=== PATIENT | female | born 1965 | race Caucasian/White ===

== ENCOUNTER 2019-02-22 09:18 | Outpatient (CLI) | END 2019-02-22 09:19 | disposition home or self-care (01) | LOC: RAD 09:18 | PROVIDERS: ATTEND Nurse Practitioner Family | DX: Z12.31 Encounter for screening mammogram for malignant neoplasm of breast (principal) ==

== ENCOUNTER 2019-06-21 14:16 | Emergency (ER) ==
[2019-06-21 14:30] VITALS: BP 163/98; TEMP 97.8; BMI 36.1
--- NOTE | 2019-06-21 15:18 | CT ---
Exam: CT of the brain without intravenous contrast. Comparison: None available. Reason for exam: Dizziness. FINDINGS: No acute intracranial hemorrhage, mass effect, ventricular dilatation, or territorial infa rction. The quadrigeminal and ambient cisterns appear patent. There is no extraaxial fluid collecti on. The calvarium appears intact without depressed skull fracture. No air-fluid levels are seen in the paranasal sinuses. Impression: No acute intracranial findings are seen in this exam.
--- NOTE | 2019-06-21 15:56 | DI ---
EXAM: Chest two views HISTORY: Chest pain COMPARISON: None TECHNIQUE: Two views of the chest were performed FINDINGS: The lungs are clear. There is no pleural effusion or pneumothorax. The heart is normal i n size. The mediastinal contour is normal. There are no acute abnormalities of the bones. IMPRESSION: No acute cardiopulmonary process.
--- NOTE | 2019-06-21 17:07 | ED.PDOC ---
General ED Provider: Dr. DUARTE HUERTA Chief Complaint: Headache Stated Complaint: HEADACHE, CHEST PAIN DIZZINES SUDDEN ONSET Time Seen by Physician: 14:30 (SEEN WITH KWAME AT D/C AND RECHECK EXAM ) Mode of Arrival: Wheelchair Information Source: Patient Exam Limitations: No limitations Primary Care Provider: AZRA MONTIEL Nursing and Triage Documentation Reviewed and Agree: Yes Does patient meet sepsis criteria?: Yes If yes, has appropriate treatment been initiated?: No System Inflammatory Response Syndrome: Not Applicable Sepsis Protocol: For patient's 13 years and over: Temp is 96.8 and below OR 101 and greater Pulse >90 BPM Resp >20/minute Acutely Altered Mental Status Are patient's symptoms suggestive of a new infection, such as: -Pneumonia -Skin, Soft Tissue -Endocarditis -UTI -Bone, Joint Infection -Implantable Device -Acute Abdominal Infection -Wound Infection -Meningitis -Blood Stream Catheter Infection -Unknown Neurological Complaint Exam - Dizziness Complaint/Exam Last Known Well: TODAY Onset: Sudden Duration: 30 MIN Symptoms Are: Resolved Timing: Intermittent Initial Severity: Mild Current Severity: None Character: Reports: Dizzy Aggravating: Reports: Exertion, Headache, Change in head position Alleviating: Reports: Rest Associated Signs and Symptoms: Denies: Nausea, Vomiting, Diaphoresis, Tinnitus, Chest pain, Short of air, Palpitations, Unsteady gait, GI blood loss, Visual changes, Decreased oral intake, Change in medication, Change in diet, OTC meds, Loss of balance Review of Systems - Review Of Systems Constitutional: Reports: Malaise Eyes: Reports: No symptoms Ears, Nose, Mouth, Throat: Reports: No symptoms Respiratory: Reports: No symptoms Cardiac: Reports: Chest pain GI: Reports: No symptoms : Reports: No symptoms Musculoskeletal: Reports: No symptoms Skin: Reports: No symptoms Neurological: Reports: Headache, Other (DIZZINESS) Endocrine: Reports: No symptoms Hematologic/Lymphatic: Reports: No symptoms All Other Systems: Reviewed and Negative Past Medical History - Past Medical History Previously Healthy: Yes Endocrine: Reports: Dyslipidemia Cardiovascular: Reports: Hypertension Respiratory: Reports: None Hematological: Reports: None Gastrointestinal: Reports: None Genitourinary: Reports: None Neuro/Psych: Reports: None Musculoskeletal: Reports: None Cancer: Reports: None Last Menstrual Period: n/a - Surgical History General Surgical History: Reports: None - Family History Family History: Reports: None - Social History Smoking Status: Current every day smoker Hx Substance Use: No Alcohol Screening: Occasionally Physical Exam - Physical Exam Appearance: Well-appearing, No pain distress, Well-nourished Eyes: KRISTIAN, EOMI, Conjunctiva clear ENT: Ears normal, Nose normal, Oropharynx normal Respiratory: Airway patent, Breath sounds clear, Breath sounds equal, Respirations nonlabored Cardiovascular: RRR, Pulses normal, No rub, No murmur GI/: Soft, Nontender, No masses, Bowel sounds normal, No Organomegaly Musculoskeletal: Normal strength, ROM intact, No edema, No calf tenderness Skin: Warm, Dry, Normal color Neurological: Sensation intact, Motor intact, Reflexes intact, Cranial nerves intact, Alert, Oriented Psychiatric: Affect appropriate, Mood appropriate - NIH Stroke Scale 1a. Level of Consciousness: 0=Alert and keenly responsive 1b. Level of Consciousness Questions: 0=Answers correctly to two questions 1c. Level of Consciousness Commands: 0=Performs two tasks correctly 2. Best Gaze: 0=Normal 3. Visual: 0=No visual loss 4. Facial Palsy: 0=Normal 5a. Motor Left Arm: 0=No drift,arm holds 90 degrees for 10 sec., leg 30 degrees for 5 sec. 5b. Motor Right Arm: 0=No drift,arm holds 90 degrees for 10 sec., leg 30 degrees for 5 sec. 6a. Motor Left Le=No drift,arm holds 90 degrees for 10 sec., leg 30 degrees for 5 sec. 7. Limb Ataxia: 0=Absent 8. Sensory: 0=Normal 9. Best Language: 0=No aphasia 10. Dysarthria: 0=Normal 11. Extincion and Inattention: 0=Normal Stroke Scale Total: 0 Interpretation - Radiology Interpretation Radiology Interpretation By: Radiologist - Neonatal Intensive Care Nurse Rate: Normal Rhythm: Sinus Ectopy: None - EKG Interpretation Rate: Normal Rhythm: Sinus Ectopy: None [place]: NL ST Segment: Normal Re-Evaluation - Re-Evaluation Time of Re-Evaluation: 17:08 Status: Improved Vital Signs Stable: Yes Pain Level: 0 Appearance: NAD Lungs: Clear Skin: Warm and Dry Neuro: Alert and Oriented X3 CV: RRR Additional Comments: ADMISSION AND STRESS TEST AND SERIAL NEURO CHECK DISCUSSED , PT REFUSED Critical Care Note - Critical Care Note Total Time (mins): 0 (REFUSED ADMISSION , PT AOX3 ABLE TO UNDERSTAND FURTHER WORK UP DECLINED THE ADMISSION) Course - Course Hematology/Chemistry: 06/21/19 14:45 06/21/19 14:45 Orders, Labs, Meds: Lab Review 06/21/19 06/21/19 06/21/19 14:45 14:45 15:25 WBC 12.82 H RBC 4.69 Hgb 13.8 Hct 41.6 MCV 88.7 MCH 29.4 MCHC 33.2 RDW Coeff of Shashi 14.6 Plt Count 291 Immature Gran % (Auto) 0.2 Neut % (Auto) 58.8 Lymph % (Auto) 31.0 [place] % (Auto) 6.7 Eos % (Auto) 2.8 Baso % (Auto) 0.5 Immature Gran # (Auto) 0.0 Neut # (Auto) 7.5 H Lymph # (Auto) 4.0 H Dade # (Auto) 0.9 Eos # (Auto) 0.4 Baso # (Auto) 0.1 Sodium 139.6 Potassium 3.94 Chloride 102.9 Carbon Dioxide 27.2 Anion Gap 13.44 BUN 12.1 Creatinine 0.81 Estimated GFR (MDRD) 74.00 BUN/Creatinine Ratio 14.93 Glucose 97.9 Calcium 9.25 Total Bilirubin 0.35 AST 34.3 ALT 25.2 Alkaline Phosphatase 84.3 Total Creatine Kinase 26.3 L Troponin I < 0.012 Total Protein 7.32 Albumin 4.42 Globulin 2.90 Albumin/Globulin Ratio 1.52 Urine Color Yellow Urine Clarity Clear Urine pH 5.5 Ur Specific [place] 1.010 Urine Protein Negative Urine Glucose (UA) Negative Urine Ketones Negative Urine Blood Negative Urine Nitrite Negative Urine Bilirubin Negative Urine Urobilinogen 0.2 Ur Leukocyte Esterase Negative Orders Category Date Time Status EKG-(ED ONLY) Stat CARDIO 06/21/19 14:59 Completed CBC W/ AUTO DIFF Stat LAB 06/21/19 14:45 Completed COMPREHENSIVE METABOLIC PANEL Stat LAB 06/21/19 14:45 Completed CREATINE KINASE Stat LAB 06/21/19 14:45 Completed TROPONIN I Stat LAB 06/21/19 14:45 Completed UA [URINALYSIS C & S IF INDICATED] Stat LAB 06/21/19 15:25 Completed CHEST, 2 VIEWS PA & LAT Stat RADS 06/21/19 14:[address] HEAD W/O CONTRAST Stat RADS 06/21/19 14:51 Completed Vital Signs: Temp Pulse Resp BP Pulse Ox 06/21/19 14:22 97.8 F 68 20 163/98 H 97 Departure - Departure Time of Disposition: 17:08 Disposition: AMA Discharge Problem: Headache, Dizziness, Chest pain Instructions: Chest Pain (ED), Dizziness (ED), Vertigo (ED) Condition: Pt referred to PMD for follow-up: Yes IPMP verified?: No Allergies/Adverse Reactions: Allergies No Known Allergies Allergy (Unverified 06/21/19 14:30) Home Medications: Ambulatory Orders Albuterol Sulfate [Ventolin Hfa] 2 puff IH Q6H PRN 06/21/19 Atenolol 25 mg PO DAILY 06/21/19 Atorvastatin Calcium [Lipitor] 10 mg PO DAILY 06/21/19 Bupropion HCl 75 mg PO BID 06/21/19 Celecoxib [Celebrex] 200 mg PO BID PRN 06/21/19 Colestipol HCl [Colestid] 2 gm PO DAILY 06/21/19 Estradiol 1 mg PO DAILY 06/21/19 Omeprazole Magnesium 40 mg PO DAILY 06/21/19 Pregabalin [Lyrica] 75 mg PO BID 06/21/19 Disposition Discussed With: Patient
== END 2019-06-21 17:19 | disposition left against medical advice (07) ==
LOC: ED 14:16
DX: R51 Headache (principal); R07.9 Chest pain, unspecified; R42 Dizziness and giddiness; E78.5 Hyperlipidemia, unspecified; I10 Essential (primary) hypertension; F17.210 Nicotine dependence, cigarettes, uncomplicated; Z79.899 Other long term (current) drug therapy
CPT/HCPCS: 36415; 80053; 81001; 82550; 84484; 85025; 93005; 93010; 99284